=== PATIENT | female | born 1995 | race African-American/Black ===

== ENCOUNTER 2020-02-18 11:55 | Emergency (ER) | payer OTHER ==
[~2020-02-18] VITALS: Ht 160 cm; Wt 52.2 kg
[2020-02-18] MEDS ORDERED: LIDOCAINE 1% INJ 50 ML MDV IJ ONE (12:09)
--- NOTE | 2020-02-18 12:10 | NUR ---
Patient came in to the er c/o right groin abscess x 5 days. On room air, breathing evenly and unlabored. connected to the monitor and pulse ox. kept comfortable, will continue to monitor accordingly.
[2020-02-18 14:33] VITALS: BP 118/77
--- NOTE | 2020-02-18 14:34 | NUR ---
Patient discharged to home in stable condition. Written and verbal after care instructions given. Patient verbalizes understanding of instruction.
== END 2020-02-18 14:34 | disposition home or self-care (01) ==
LOC: ER 12:02
DX: N75.0 Cyst of Bartholin's gland (principal)
CPT/HCPCS: 76882; 99284; J3490